=== PATIENT | male | born 1995 | race Caucasian/White ===

== ENCOUNTER 2023-02-16 11:39 | Emergency (ER) | payer OTHER, SELFPAY ==
[2023-02-16 11:41] VITALS: BP 140/93; PULSE 67; RESP 14; TEMP 36.1; O2SAT 100; BMI 25.7
--- NOTE | 2023-02-16 12:28 | CT_ITS ---
STUDY: CT BRAIN WITHOUT CONTRAST REASON FOR EXAM: Male, 27 years old. headache. Drowsiness. RADIATION DOSAGE (If Supplied By Facility): CTDIvol = ( 44.99 ) mGy, DLP = ( 812.98 ) mGycm TECHNIQUE: Transaxial CT imaging of the brain was performed without administration of intravenous contrast material. Individualized dose optimization techniques were used for this CT. COMPARISON: No relevant priors. FINDINGS: Normal soft tissue structures. Normal calvarium. Normal size ventricles and extra-axial spaces for the patient''s age. Normal white matter tracts of the cerebral hemispheres. Normal basal ganglia and thalami. Normal brainstem. Normal cerebellum. There is no intracranial hemorrhage. There are no findings of an acute ischemic infarction. Normal visualized paranasal sinuses. CT/Brain/Head without Contrast IMPRESSION: Normal unenhanced CT scan of the brain. Electronically Signed: Konstantin Bermeo MD at 13:11 EDT ,
--- NOTE | 2023-02-16 12:29 | EKG12_ITS ---
Test Reason : WEAKNESS Blood Pressure : / mmHG Vent. Rate : 062 BPM Atrial Rate : 062 BPM P-R Int : 164 ms QRS Dur : 094 ms QT Int : 400 ms P-R-T Axes : 067 052 027 degrees QTc Int : 406 ms Normal sinus rhythm Normal ECG Confirmed by GUY HYDE, YULIA ([id number]), industrial editor LAINEY ESPINAL ([id number]) on 02/20/2023 8:24:12 AM Referred By: Confirmed By:TICO TOVAR MD
--- NOTE | 2023-02-16 12:33 | EX.ED.DYSGE1 ---
HPI History of Present Illness Chief Complaint: Fatigue Narrative Narrative: When he 27-year-old male presenting with extreme fatigue. He states that yesterday he was driving home from work and he acutely felt so tired he did not think he would make it home. 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 Patient states he pulled over in a parking lot of a grocery store and fell asleep. He states he fell asleep immediately. He woke up at about 6 and went home. He had dinner with his family. Patient states that he developed a headache last night which is atypical for him. He states it was behind his eyes and radiated around to his occiput. Denies any head trauma. No history of migraine. Patient states he took Tylenol and lay down until he fell asleep. Does not headache anymore. Has not had fever, chills, nausea, vomiting. Patient does state that he has noticed over the course of the last week he has intermittent palpitations and feels like his heart stopping. Patient does state that he had a sleep study done which he was told is concerning but he knows no other information about that. He does snore very loud at night he states. Patient also states he quit drinking alcohol on the . He did not go through any withdrawal. He states he is replaced his alcohol with sweet tea and has been adding 2 cups of sugar to a gallon. [facility] Medical History Crohn's disease Medical History no medical history Allergy/AdvReac Type Severity Reaction Status Date / Time No Known Allergies Allergy Verified 02/16/23 11:42 Surgical History no surgical history Social History Smoking Status: Current every day smoker tobacco type: cigarettes ROS ROS ED Constitutional Constitutional ED: Denies chills or fever(s) Eyes Eyes: Denies change in vision ENT ENT ED: Denies rhinorrhea or sore throat Cardiovascular Cardiovascular: Reports palpitations Respiratory/Chest Respiratory/Chest: Denies cough or dyspnea Gastrointestinal Gastrointestinal: Denies abdominal pain or nausea Genitourinary Genitourinary ED: Denies dysuria or hematuria Musculoskeletal Musculoskeletal: Denies arthralgias Integumentary Denies abscess or Abrasions Neurologic Neurologic: Reports headache(s); Denies paresthesias Psychiatric Psychiatric: Denies anxiety or depression EXAM Physical Exam Const Vital Signs: 02/16/23 11:41 02/16/23 12:04 02/16/23 14:54 Temperature 97.0 F L Temperature Source Temporal Pulse Rate 67 81 Respiratory Rate 14 16 Respiratory Effort Normal Non-Labored Respiratory Pattern Normal Blood Pressure 140/93 H 123/80 H Blood Pressure Mean 108 Pulse Ox 100 98 Oxygen Delivery Method Room Air Positive well nourished General Appearance ED: NAD; Negative for pallor HEENT Reports moist mucous membranes Eyes PERRL and EOMs intact bilaterally Neck no lymphadenopathy Chest Wall inspection of chest normal Resp normal respiratory effort and clear to auscultation bilaterally Auscultation: Negative for rales, rhonchi or wheezes Cardio regular rate and regular rhythm GI normal to inspection, nondistended, normoactive bowel sounds Extremity normal to inspection Neuro oriented x3, CN's II-XII intact bilaterally and no sensory deficits noted Sensorium / Orientation: alert Motor Exam: strength 5/5 throughout Psych mental status grossly normal Skin no rashes or lesions noted and no wounds General Skin Exam: Negative for jaundice or pallor MDM MDM MDM Narrative Medical decision making narrative: Patient presenting with extreme fatigue he is also complaining of palpitations and he had a severe headache last night. Differential includes acute coronary syndrome, pneumonia, dehydration, electrolyte abnormalities, sleep apnea, hyperglycemia, UTI, intracranial bleeding, sleep apnea. CBC will be obtained to assess white blood cell count, hemoglobin, platelets. CMP to assess liver function, renal function, electrolytes. Lipase to assess for pancreatitis. High-sensitivity troponin and EKG to assess for ischemia and dysrhythmia. Chest x-ray to rule out pneumonia. CT brain will be obtained due to the patient's headache. Urinalysis to assess for UTI. Patient's lab workup is ultimately normal. He requested a TSH to be drawn and this was drawn up and this is also normal. Vitals are stable. He is afebrile. I suspect that the patient has sleep apnea he says he snores severely. He states he has a sleep study that had some concerns but he has not followed up further results. I recommend that he does. Return precautions were discussed. Impression: 1. Fatigue 2. Generalized weakness Lab Data Labs: Laboratory Results - last 24 hr 02/16/23 02/16/23 12:35 13:20 WBC 7.3 RBC 4.54 L Hgb 14.0 Hct 42.0 MCV 92.5 MCH 30.8 MCHC 33.3 RDW Std Deviation 41.7 RDW Coeff of Radha 12.2 Plt Count 222 MPV 9.5 Immature Gran % (Auto) 0.300 Neut % (Auto) 54.9 Lymph % (Auto) 32.6 [place] % (Auto) 10.6 H Eos % (Auto) 1.2 Baso % (Auto) 0.4 Absolute Neuts (auto) 4.0 Absolute Lymphs (auto) 2.38 Nucleated RBC % 0 Sodium 138 Potassium 3.9 Chloride 107 Carbon Dioxide 29.0 Anion Gap 2 L BUN 13 Creatinine 0.94 Estim Creat Clear Calc 123.50 Est GFR (MDRD) Af Amer 121 Est GFR (MDRD) Non-Af 100 BUN/Creatinine Ratio 13.8 Glucose 91 Calcium 8.9 Total Bilirubin 0.60 AST 23 ALT 38 Alkaline Phosphatase 64 Troponin I High Sens 5 Total Protein 7.2 Albumin 3.9 Globulin 3.3 Albumin/Globulin Ratio 1.2 Lipase 33 TSH 1.78 Urine Color Yellow Urine Clarity Clear Urine pH 6.5 Ur Specific [place] 1.015 Urine Protein Negative Urine Glucose (UA) Normal Urine Ketones Negative Urine Occult Blood 10 H Urine Nitrite Negative Urine Bilirubin Negative Urine Urobilinogen Normal Ur Leukocyte Esterase Negative Urine RBC 0 SEEN Urine WBC 0 SEEN Ur Squamous Epith Cells 0 SEEN Urine Bacteria 0 SEEN Urine Mucus 0 SEEN Radiography Diagnostic Testing: Clinical Impression(s) from Imaging Studies Brain CT 02/16/23 12:28 IMPRESSION: Normal unenhanced CT scan of the brain. Electronically Signed: Konstantin Bermeo MD at 13:11 EDT , Chest X-Ray 02/16/23 13:00 IMPRESSION: Normal x-ray examination of the chest. Electronically Signed: Konstantin Bermeo MD at 13:12 EDT , Discharge Plan Triage Chief Complaint: Fatigue ED Provider: Cortes Vasquez Dx/Rx/DC Orders Instructions: ED Weakness (Uncertain Cause) [facility] [Primary Care Provider] - Disposition Disposition: Home, Self Care Discharge Date/Time: 02/16/23 14:55
[2023-02-16 12:44] LABS: Absolute Lymphocyte Count 2.38 X10^3/uL (0.83-4.51); Basophil# 0.03 X10^3/uL; Basophil% 0.4 % (0-1); Eosinophil# 0.09 X10^3/uL; Eosinophils% 1.2 % (0-5); Lymphocyte # 2.38 X10^3/ul (0.83-4.51); Lymphocyte % 32.6 % (19-41); Mean Corp Hgb Conc 33.3 g/dL (32-36); Mean Corpuscular Hgb 30.8 pg (27.0-32.0); Mean Corpuscular Volume 92.5 fL (80-94); Mean Platelet Vol. 9.5 fl (6.2-12.0); Monocyte# 0.77 X10^3/uL; Monocyte% 10.6 % (0-10); NRBC Flagged by Analyzer 0 % (0-5); Neutrophil % 54.9 % (47-70); Platelet Count 222 K/mm3 (150-450); RBC Distribution Width CV 12.2 % (11.6-14.6); RBC Distribution Width SD 41.7 fl (35.1-43.9); Red Blood Count 4.54 M/mm3 (4.6-6.2); White Blood Count 7.3 K/mm3 (4.4-11.0)
--- NOTE | 2023-02-16 13:00 | RAD_ITS ---
STUDY: X-RAY CHEST REASON FOR EXAM: Male, 27 years old. Extreme fatigue. Palpitations. TECHNIQUE: Single AP portable view of the chest. COMPARISON: None. FINDINGS: EKG electrodes are seen. The lungs are clear and expanded. There is no demonstrated pleural abnormality. Normal size heart. Normal mediastinum and severiano. Normal visualized pulmonary arteries. Normal visualized aortic arch and descending thoracic aorta. Normal visualized thoracic spine. Normal visualized ribs, clavicles, and shoulders. There is no demonstrated abnormality of the visualized soft tissue structures of the upper abdomen. RAD/Chest 1 View (Portable) IMPRESSION: Normal x-ray examination of the chest. Electronically Signed: Konstantin Bermeo MD at 13:12 EDT ,
[2023-02-16 13:02] LABS: ALB/GLOB Ratio 1.2 RATIO (0.9-2.4); AST(SGOT) 23 U/L (15-37); Alanine Aminotransfer ALT/SGPT 38 U/L (16-61); Albumin, Serum 3.9 g/dL (3.2-5.0); Alkaline Phosphatase 64 U/L (45-117); Anion Gap 2 (5-15); BUN 13 mg/dL (7-18); BUN/Creat Ratio 13.8 RATIO (10-20); Calcium,Total 8.9 mg/dL (8.5-10.1); Chloride 107 mmol/L (98-107); Creatinine, Serum 0.94 mg/dL (0.70-1.30); EST Glomerular Filtration Rate 100 mL/min (>60); Est Glom Filt Rate - Afr Amer 121 mL/min (>60); Globulin 3.3 g/dL (2.2-4.2); Glucose 91 mg/dL (74-106); Lipase 33 U/L (13-75); Potassium 3.9 mmol/L (3.5-5.1); Protein, Total 7.2 g/dL (6.4-8.2); Sodium Level 138 mmol/L (136-145); Troponin-I HS 5 pg/mL (3.0-78.0)
[2023-02-16 13:28] LABS: Bacteria 0 SEEN /hpf (None Seen); Mucous, Urine 0 SEEN /hpf (<or=2+); Red Blood Cells-Urine 0 SEEN /hpf (0-5); Squamous Epithelial Cells - UA 0 SEEN /hpf (0-5); White Blood Cells 0 SEEN /hpf (0-5)
[2023-02-16 13:34] LABS: Color, Urine Yellow (Yellow); Glucose, Dipstick Normal (Normal); Ketone-Dipstick Negative (Negative); Leukocyte Esterase-Dipstick Negative /ul (Negative); Nitrite-Dipstick Negative (Negative); Occult Blood-Urine 10 /ul (Negative); Protein-Dipstick Negative (Negative); Specific Gravity, Urine 1.015 (1.002-1.030); Urine Bilirubin Dipstick Negative (Negative); Urine Clarity Clear (Clear); Urine Urobilinogen Normal (Normal); Urine pH 6.5 (5.0 - 8.0)
[2023-02-16 14:26] LABS: Thyroid Stim Hormone (TSH) 1.78 uIU/mL (0.358-3.74)
[2023-02-16 14:54] VITALS: BP 123/80; PULSE 81; RESP 16; O2SAT 98
== END 2023-02-16 14:55 | disposition home or self-care (01) ==
PROVIDERS: Emergency Provider Student in an Organized Health Care Education/Training Program; Visit Provider Student in an Organized Health Care Education/Training Program
DX: R53.83 Other fatigue (principal); R53.1 Weakness; R06.83 Snoring; F17.210 Nicotine dependence, cigarettes, uncomplicated
CPT/HCPCS: 70450; 71045; 80053; 81001; 83690; 84443; 84484; 85025; 93005; 99283

== ENCOUNTER → 2023-05-08 | Outpatient (CLI) | payer OTHER, SELFPAY ==
--- NOTE | 2023-05-08 08:30 | RAD_ITS ---
STUDY: X-RAY - ORBITS REASON FOR EXAM: Male, 28 years old. MRI CLEARANCE TECHNIQUE: 2 view(s) of the orbits were obtained. COMPARISON: None. FINDINGS: Normal bilateral orbits without a metallic orbital foreign body. Normal visualized facial bones. Normal paranasal sinuses. The soft tissue structures are unremarkable. RAD/Orbits for Foreign Body IMPRESSION: No demonstrated metallic orbital foreign body. The patient is cleared for an MRI examination. Electronically Signed: Konstantin Bermeo MD at 8:49 EDT ,
--- NOTE | 2023-05-08 08:45 | MRI_ITS ---
STUDY: MRI SACROILIAC JOINTS REASON FOR EXAM: Male, 28 years old. Sacroiliitis. Sacroiliac joints. TECHNIQUE: Standardized fat and water weighted pulse sequences were obtained in all 3 orthogonal planes. COMPARISON: None. FINDINGS: Normal bilateral sacral alae. Normal bilateral sacroiliac joints. There is limited visualization of the bilateral iliac wings, without demonstrated abnormality. Normal visualized sacral vertebrae. Normal sacrococcygeal junction with normal visualized coccygeal segments. Normal visualized presacral adipose space. The visualized soft tissue structures of the pelvis are unremarkable. There is curvilinear subchondral low signal in the superior aspect of the right femoral head (coronal T1 series 6 images 11-14), suggestive of a possible trabecular stress fracture. There is a 7 mm synovial herniation pit along the anterolateral aspect of the right femoral head-neck junction (coronal STIR series 7 image 12; axial STIR series 4 image 24). MRI/Pelvis (Routine) IMPRESSION: Curvilinear subchondral low signal in the superior aspect of the right femoral head, suggestive of a possible trabecular stress fracture. 7 mm synovial herniation pit along the anterolateral aspect of the right femoral head-neck junction. No MRI evidence of sacroiliitis. Electronically Signed: Ramón Ospina MD at 10:44 EDT ,
== END | disposition home or self-care (01) ==
LOC: MRI 08:21
DX: M46.1 Sacroiliitis, not elsewhere classified (principal)
CPT/HCPCS: 70030; 72195

== ENCOUNTER → 2023-12-14 | Outpatient (CLI) | payer OTHER, SELFPAY ==
[2023-12-14 15:37] LABS: Absolute Lymphocyte Count 1.96 X10^3/uL (0.83-4.51); Absolute Neutrophil Count 3.8 X10^3/uL (2.0-7.7); Basophil# 0.03 X10^3/uL; Basophil% 0.5 % (0-1); Eosinophil# 0.07 X10^3/uL; Eosinophils% 1.1 % (0-5); Hematocrit 42.9 % (40-54); Hemoglobin 14.3 g/dL (13.0-16.5); Lymphocyte # 1.96 X10^3/ul (0.83-4.51); Lymphocyte % 30.2 % (19-41); Mean Corp Hgb Conc 33.3 g/dL (32-36); Mean Corpuscular Hgb 30.4 pg (27.0-32.0); Mean Corpuscular Volume 91.1 fL (80-94); Monocyte# 0.58 X10^3/uL; Monocyte% 8.9 % (0-10); NRBC Flagged by Analyzer 0 % (0-5); Neutrophil # 3.83 X10^3/uL (2.7-7.7); Platelet Count 260 K/mm3 (150-450); RBC Distribution Width SD 40.2 fl (35.1-43.9); Red Blood Count 4.71 M/mm3 (4.6-6.2); White Blood Count 6.5 K/mm3 (4.4-11.0)
[2023-12-14 15:48] LABS: Vitamin D,25 Hydroxy 30.2 ng/mL
[2023-12-14 16:03] LABS: ALB/GLOB Ratio 1.2 RATIO (0.9-2.4); AST(SGOT) 24 U/L (15-37); Alanine Aminotransfer ALT/SGPT 32 U/L (16-61); Albumin, Serum 4.4 g/dL (3.2-5.0); Alkaline Phosphatase 71 U/L (45-117); Anion Gap 8 (5-15); BUN 13 mg/dL (7-18); BUN/Creat Ratio 13.2 RATIO (10-20); Calcium,Total 9.6 mg/dL (8.5-10.1); Chloride 103 mmol/L (98-107); Creatinine, Serum 0.98 mg/dL (0.70-1.30); EST Glomerular Filtration Rate 95 mL/min (>60); Est Glom Filt Rate - Afr Amer 115 mL/min (>60); Globulin 3.7 g/dL (2.2-4.2); Glucose 91 mg/dL (74-106); Potassium 3.6 mmol/L (3.5-5.1); Protein, Total 8.1 g/dL (6.4-8.2); Sodium Level 136 mmol/L (136-145)
== END | disposition home or self-care (01) ==
LOC: BIMLAB 12:41
PROVIDERS: Referring Provider Internal Medicine; Visit Provider Internal Medicine
DX: F32.A Depression, unspecified (principal)
CPT/HCPCS: 36415; 80053; 82306; 85025

== ENCOUNTER 2024-01-23 12:50 | Emergency (ER) | payer OTHER, SELFPAY ==
[2024-01-23 12:51] VITALS: BP 139/77; PULSE 79; RESP 16; TEMP 36.9; O2SAT 100; BMI 25.8
--- NOTE | 2024-01-23 13:04 | CT_ITS ---
STUDY: CT ABDOMEN AND PELVIS WITH CONTRAST REASON FOR EXAM: Male, 28 years old. Lower abd pain, rectal bleeding , hx of Crohn''s. RADIATION DOSAGE (If Supplied By Facility): CTDIvol = ( 10.59 ) mGy, DLP = ( 725.95 ) mGycm TECHNIQUE: Transaxial images were obtained from the dome of the diaphragm to the symphysis pubis without oral contrast. IV 100mL Isovue-370 was administered. Sagittal and coronal images were reconstructed. Individualized dose optimization techniques were used for this CT. COMPARISON: None. FINDINGS: The visualized lung bases are unremarkable. The visualized portions of the heart are within normal limits. Normal liver. Normal gallbladder and extrahepatic biliary system. Normal spleen. Normal pancreas. Normal bilateral adrenal glands. Normal right kidney. Normal left kidney. Normal visualized stomach. Normal small intestine. There are scattered colonic diverticula consistent with diverticulosis. Moderate amount of fecal material is seen in the colon. The appendix is visualized and appears normal. Small lymph nodes are seen in the root of the mesentery suggestive of possible adenitis. Normal abdominal aorta. Normal inferior vena cava. Normal retroperitoneum. Normal urinary bladder. Normal abdominal wall. There is straightening of the normal lumbar lordosis. CT/Abdomen/Pelvis W IV Cont ONLY IMPRESSION: Benign-appearing lymph nodes in the root of the mesentery suggestive of adenitis. Moderate amount of fecal material is seen in the colon. Scattered sigmoid diverticula. Electronically Signed: Konstantin Bermeo MD at 13:44 EDT ,
--- NOTE | 2024-01-23 13:06 | ED.VIS.GI ---
HPI HPI - GI History of Present Illness Chief Complaint: GI Bleed Detail of Chief Complaint: Rectal bleeding Informant: patient Narrative Narrative: Patient presents to the emergency department complaint of rectal bleeding that started 3 to 4 days ago. Patient states that he frequently has blood in the stool. He tells me that he was diagnosed with Crohn's disease in 2018 by a field training manager through the [place]. He tells me he had a colonoscopy in July of this year that was unremarkable. Patient describes some mild lower abdominal discomfort. Denies feeling lightheaded or dizzy. [place] fever chills or sweats. Today he thought he needed to have a bowel movement and passed mostly blood and some clot and became concerned so he comes for evaluation. [facility] Medical History (Updated 01/23/24 @ 14:[address] Shayy Fonseca DO) Anxiety Depressed Sleep apnea Vision problem IBS (irritable bowel syndrome) Hearing problem Back problem Arthritis Crohn's disease Home Medications ?Medication ?Instructions ?Recorded ?Last Taken ?Type adalimumab-bwwd 40 mg/0.8 mL 40 mg subcut Q2W 12/14/23 Unknown History subcutaneous syringe (Hadlima) cyclobenzaprine 5 mg tablet 5 mg PO TID PRN 12/14/23 Unknown History escitalopram oxalate 5 mg tablet 5 mg PO DAILY #30 tabs 12/14/23 Unknown Rx (Lexapro) meloxicam 7.5 mg tablet 7.5 mg PO DAILY #30 tabs 12/14/23 Unknown Rx naproxen 250 mg tablet 250 mg PO BID PRN 12/14/23 Unknown History Allergy/AdvReac Type Severity Reaction Status Date / Time No Known Allergies Allergy Verified 12/14/23 10:57 Family History Grandfather Cancer Grandmother Cancer Mother Hypertension Father Anxiety Surgical History H/O colonoscopy Social History (Updated 12/14/23 @ 11:[address] Juliette Vega MD) household members: spouse and children current occupational status: employed current occupation: bicycle mechanic Smoking Status: Light Smoker (<10/day) Smokeless tobacco user: chewing tobacco Electronic Cigarette Use: not used quit status: not considering quitting alcohol intake: current alcohol intake frequency: a few times a week Alcohol type: beer details: 12 pack per week substance use type: former substance user Date of last use: 2018, marijuana and crack/cocaine seatbelt use: always do you feel safe at home: Yes ROS ROS ED Review of Systems ROS Unobtainable: other Constitutional Constitutional ED: Reports lethargy; Denies chills, fever(s), sweats or weight loss Eyes Eyes: Denies blurry vision, change in vision or diplopia ENT ENT ED: Denies rhinorrhea or sore throat Cardiovascular Cardiovascular: Denies chest pain, orthopnea or racing heartbeat Respiratory/Chest Respiratory/Chest: Denies cough, dyspnea, dyspnea on exertion, orthopnea or sputum Gastrointestinal Gastrointestinal: Reports abdominal pain and other Details: Bright red blood per rectum ; Denies diarrhea, nausea or vomiting Genitourinary Genitourinary ED: Denies dysuria, hematuria or urinary frequency Musculoskeletal Musculoskeletal: Denies arthralgias, back pain, myalgias or neck pain Integumentary Denies abscess, Abrasions or rash Neurologic Neurologic: Denies headache(s) or weakness Psychiatric Psychiatric: Denies anxiety, depression or suicidal thoughts Endocrine Endocrinology: Denies polydipsia, polyphagia or polyuria Hematologic/Lymphatic Hematologic/Lymphatic: Denies easy bleeding, easy bruising or lymphadenopathy Allergic/Immunologic Allergic/Immunologic ED: Denies mouth swelling, tongue swelling or urticaria EXAM Physical Exam Const Vital Signs: 01/23/24 12:51 01/23/24 13:26 01/23/24 14:29 Temperature 98.4 F 97.2 F L Temperature Source Temporal Pulse Rate 79 76 Pulse Rate [Lying] 69 Pulse Rate [Sitting (for 1 minute prior to obtaining)] 73 Pulse Rate [Standing (for 1 minute prior to obtaining)] 82 Respiratory Rate 16 18 Blood Pressure 139/77 H 131/74 H Blood Pressure [Lying] 135/68 H Blood Pressure [Sitting (for 1 minute prior to obtaining)] 136/77 H Blood Pressure [Standing (for 1 minute prior to obtaining)] 147/70 H Blood Pressure Mean 97 93 Blood Pressure Mean [Lying] 90 Blood Pressure Mean [Sitting (for 1 minute prior to obtaining)] 96 Blood Pressure Mean [Standing (for 1 minute prior to obtaining)] 95 Pulse Ox 100 97 Oxygen Delivery Method Room Air Positive well nourished and well developed General Appearance ED: well developed and NAD HEENT Reports TM's clear and moist mucous membranes normocephalic and atraumatic; Negative for trauma or tenderness Tympanic Membrane ED: Yes TM's clear Eyes PERRL and EOMs intact bilaterally General Eye ED: Negative for pale conjunctiva or scleral icterus Neck no lymphadenopathy, supple and no JVD General: Negative for tenderness Chest Wall inspection of chest normal and palpation of chest normal Chest: Negative for tenderness Resp normal respiratory effort and clear to auscultation bilaterally Effort and Inspection: Negative for respiratory distress or pain with movement Auscultation: Negative for rhonchi, wheezes or diminished lung sounds Cardio regular rate, regular rhythm, S1 normal heart sound, S2 normal heart sound and no murmurs Peripheral Pulses: pulses 2+ throughout GI normal to inspection, nondistended, normoactive bowel sounds, soft to palpation, non-distended and no masses GI Narrative: Mild suprapubic tenderness on exam. There is no rebound, rigidity, or. Signs. No mass palpated. Rectal exam performed-there are no hemorrhoids or fissures noted. Gross blood noted perirectal. Back/Spine no CVA tenderness and no thoracic nor lumbar tenderness Extremity normal to inspection General Extremety ED: Negative for edema General Extremity: Negative for edema Neuro oriented x3, CN's II-XII intact bilaterally, no sensory deficits noted and gait normal Sensorium / Orientation: awake, alert, oriented to person, oriented to place and oriented to time Motor Exam: strength 5/5 throughout and strength abnormal Psych mental status grossly normal Skin no rashes or lesions noted and no wounds MDM MDM MDM Narrative Medical decision making narrative: Patient presents emergency department for rectal bleeding and history of Crohn's. Patient also has history of having 5 polyps removed from his colon in 2022. Patient had a colonoscopy about 6 months ago that he tells me it was unremarkable. IV line established. CBC with differential regular 4.3 with hemoglobin 13.6 and platelet count of 192. Chemistries unremarkable. BUN was 12 and creatinine 0.99. Lactate was normal at 1.0. CT scan of the abdomen pelvis showed moderate stool throughout the colon otherwise no acute findings. He had benign-appearing lymph nodes in the root of the mesentery suggestive of adenitis. Patient also had scattered sigmoid diverticula. Orthostatic vital signs were negative. Patient tells me that he has had some diarrhea 2 days ago had 2 episodes of watery stool before having the bloody bowel movement today. Patient frequently has some blood in his stool. At this point clinically he looks well. Feel he can be discharged to home to follow-up with his field training manager. I advised that he return if persistent heavy bleeding or passing clots or lightheaded or dizzy or severe abdominal pain or fever or condition should worsen anyway. Lab Data Attestation: I reviewed the patient's lab results. Labs: Laboratory Results - last 24 hr 01/23/24 13:15 WBC 4.3 L RBC 4.34 L Hgb 13.6 Hct 39.3 L MCV 90.6 MCH 31.3 MCHC 34.6 RDW Std Deviation 41.0 RDW Coeff of Radha 12.4 Plt Count 192 MPV 9.3 Immature Gran % (Auto) 0.200 Neut % (Auto) 51.7 Lymph % (Auto) 37.3 [place] % (Auto) 8.5 Eos % (Auto) 1.8 Baso % (Auto) 0.5 Absolute Neuts (auto) 2.2 Absolute Lymphs (auto) 1.62 Nucleated RBC % 0 Sodium 140 Potassium 3.5 Chloride 107 Carbon Dioxide 29.0 Anion Gap 4 L BUN 12 Creatinine 0.99 Estim Creat Clear Calc 112.65 Est GFR (MDRD) Af Amer 114 Est GFR (MDRD) Non-Af 94 BUN/Creatinine Ratio 12.1 Glucose 129 H Lactic Acid 1.0 Calcium 8.5 Radiography Diagnostic Testing: Clinical Impression(s) from Imaging Studies Abdomen/Pelvis CT 01/23/24 13:04 IMPRESSION: Benign-appearing lymph nodes in the root of the mesentery suggestive of adenitis. Moderate amount of fecal material is seen in the colon. Scattered sigmoid diverticula. Electronically Signed: Konstantin Bermeo MD at 13:44 EDT , Discharge Plan Triage Chief Complaint: GI Bleed ED Provider: Shayy Fonseca Dx/Rx/DC Orders Clinical Impression: RB (rectal bleeding) Instructions: ED Lower GI Bleeding (Stable) Prescriptions: No Action naproxen 250 mg tablet 250 mg PO BID PRN Rx Instructions: dosage unknown cyclobenzaprine 5 mg tablet 5 mg PO TID PRN Rx Instructions: dosage unknown Hadlima 40 mg/0.8 mL syringe 40 mg subcut Q2W escitalopram oxalate [Lexapro] 5 mg tablet 5 mg PO DAILY Qty: 30 1RF meloxicam 7.5 mg tablet 7.5 mg PO DAILY Qty: 30 1RF Primary Care Provider: Juliette Vega Referrals: Juliette Vega MD [Primary Care Provider] - Activity Restrictions/Additional Instructions: Follow-up with your field training manager within next 3 to 5 days. Print Language: Ukrainian Disposition Disposition: Home, Self Care Discharge Date/Time: 01/23/24 14:30
[2024-01-23] MEDS: 0.9% Normal Saline (1000mL) 1,000 ML 125 ML IV (13:17)
[2024-01-23 13:23] LABS: Absolute Lymphocyte Count 1.62 X10^3/uL (0.83-4.51); Absolute Neutrophil Count 2.2 X10^3/uL (2.0-7.7); Basophil# 0.02 X10^3/uL; Basophil% 0.5 % (0-1); Eosinophil# 0.08 X10^3/uL; Eosinophils% 1.8 % (0-5); Hematocrit 39.3 % (40-54); Hemoglobin 13.6 g/dL (13.0-16.5); Lymphocyte # 1.62 X10^3/ul (0.83-4.51); Lymphocyte % 37.3 % (19-41); Mean Corp Hgb Conc 34.6 g/dL (32-36); Mean Corpuscular Hgb 31.3 pg (27.0-32.0); Mean Corpuscular Volume 90.6 fL (80-94); Mean Platelet Vol. 9.3 fl (6.2-12.0); Monocyte# 0.37 X10^3/uL; Monocyte% 8.5 % (0-10); NRBC Flagged by Analyzer 0 % (0-5); Neutrophil # 2.24 X10^3/uL (2.7-7.7); Neutrophil % 51.7 % (47-70); Platelet Count 192 K/mm3 (150-450); RBC Distribution Width CV 12.4 % (11.6-14.6); Red Blood Count 4.34 M/mm3 (4.6-6.2); White Blood Count 4.3 K/mm3 (4.4-11.0)
[2024-01-23 13:26] VITALS: BP 135/68; BP 136/77; BP 147/70; PULSE 69; PULSE 73; PULSE 82
[2024-01-23 13:43] LABS: Anion Gap 4 (5-15); BUN 12 mg/dL (7-18); BUN/Creat Ratio 12.1 RATIO (10-20); Calcium,Total 8.5 mg/dL (8.5-10.1); Chloride 107 mmol/L (98-107); Creatinine, Serum 0.99 mg/dL (0.70-1.30); EST Glomerular Filtration Rate 94 mL/min (>60); Est Glom Filt Rate - Afr Amer 114 mL/min (>60); Estimated Creatinine Clearance 112.65 ml/min; Glucose 129 mg/dL (74-106); Potassium 3.5 mmol/L (3.5-5.1); Sodium Level 140 mmol/L (136-145)
[2024-01-23 14:29] VITALS: BP 131/74; PULSE 76; RESP 18; TEMP 36.2; O2SAT 97
== END 2024-01-23 14:30 | disposition home or self-care (01) ==
PROVIDERS: Emergency Provider Emergency Medicine; PCP Internal Medicine; Visit Provider Emergency Medicine
DX: K62.5 Hemorrhage of anus and rectum (principal); F17.220 Nicotine dependence, chewing tobacco, uncomplicated
CPT/HCPCS: 74177; 80048; 83605; 85025; 96360; 99284; J7030; Q9967; A4216

== ENCOUNTER → 2024-07-04 | Outpatient (CLI) | payer OTHER, SELFPAY | END | disposition home or self-care (01) | PROVIDERS: PCP Internal Medicine; Referring Provider Internal Medicine; Visit Provider Internal Medicine | DX: G47.10 Hypersomnia, unspecified (principal) | CPT/HCPCS: 95806 ==

== ENCOUNTER → 2024-10-25 | Outpatient (CLI) | payer OTHER, SELFPAY | END | disposition home or self-care (01) | LOC: SL 10:56 | PROVIDERS: PCP Internal Medicine; Visit Provider Internal Medicine | DX: Z00.00 Encounter for general adult medical examination without abnormal findings (principal) ==

== ENCOUNTER → 2025-03-05 | Outpatient (CLI) | payer OTHER, SELFPAY ==
[2025-03-05 14:33] LABS: Hematocrit 42.2 % (40-54); Hemoglobin 14.7 g/dL (13.0-16.5); Immature Granulocytes Count 0.020 X10^3/uL (0.0-0.0); Mean Corp Hgb Conc 34.8 g/dL (32-36); Mean Corpuscular Volume 89.4 fL (80-94); Mean Platelet Vol. 9.3 fl (6.2-12.0); NRBC Flagged by Analyzer 0 % (0-5); Platelet Count 254 K/mm3 (150-450); RBC Distribution Width CV 12.1 % (11.6-14.6); RBC Distribution Width SD 39.2 fl (35.1-43.9); Red Blood Count 4.72 M/mm3 (4.6-6.2); White Blood Count 6.2 K/mm3 (4.4-11.0)
[2025-03-05 15:01] LABS: AST(SGOT) 23 U/L (<=37); Alanine Aminotransfer ALT/SGPT 27 U/L (<=46); Albumin, Serum 4.8 g/dL (3.5-5.0); Alkaline Phosphatase 65 U/L (40-129); Anion Gap 11 (5-15); BUN 13 mg/dL (4-19); BUN/Creat Ratio 15.1 RATIO (10-20); Calcium,Total 9.6 mg/dL (7.6-11.0); Carbon Dioxide 26.1 mmol/L (21.0-32.0); Chloride 103 mmol/L (98-108); Cholesterol 207 mg/dL (<=200); Globulin 2.9 g/dL (2.2-4.2); Glucose 103 mg/dL (70-99); Low Density Lipoprotein Calc. 133 mg/dL; Potassium 4.3 mmol/L (3.3-5.1); Triglycerides 118 mg/dL; Very Low Density Lipoprotein 24 mg/dL (5-40); cholesterol:hdl ratio screen 4.14
[2025-03-07 11:08] LABS: Lyme Scn Total Ab w/Rflx Negative (Negative)
[2025-03-07 12:08] LABS: ANTINUCLEAR ANTIBODIES DIRECT Negative (Negative)
== END | disposition home or self-care (01) ==
PROVIDERS: PCP Internal Medicine; Referring Provider Physician Assistant; Visit Provider Physician Assistant
DX: Z00.00 Encounter for general adult medical examination without abnormal findings (principal); R53.83 Other fatigue
CPT/HCPCS: 36415; 80053; 80061; 84443; 85025; 86038; 86225; 86618